=== PATIENT | male | born 1940 | race Caucasian/White ===

== ENCOUNTER 2023-11-19 20:03 | Inpatient (IN) | payer OTHER, MEDICARE ==
[~2023-11-19] VITALS: Ht 170.2 cm; Wt 75.3 kg
[2023-11-19] MEDS: atorvastatin 20mg tablet PO SCH (01:30)
[2023-11-19] MEDS ORDERED: mag hydrox/Alum hydrox/simeth 30ml oral suspension PO PRN (21:25)
[2023-11-19] MEDS ORDERED: ondansetron/PF 4mg/2ml inj IV PRN (21:25)
[2023-11-19] MEDS ORDERED: potassium Cl 20 mEq SR tablet PO PRN ×2 (21:25)
[2023-11-19] MEDS ORDERED: magnesium 2GM in 50ml NS 50 ML IV PRN (21:25)
[2023-11-19] MEDS ORDERED: magnesium hydroxide 30ml (MOM) UD suspension PO PRN (21:25)
[2023-11-19] MEDS ORDERED: potassium Cl 40MEQ/1/2NS 520ml 520 ML IV PRN (21:25)
[2023-11-19] MEDS ORDERED: magnesium 4gm in 100ml NS 100 ML IV PRN (21:25)
[2023-11-19] MEDS ORDERED: magnesium Cl slow-release 64mg tablet PO PRN (21:25)
[2023-11-19] MEDS ORDERED: heparin 10,000 units/1 ML INJ IV PRN (21:35)
[2023-11-19] MEDS: heparin 10,000 units/1 ML INJ IV ONE (22:03)
[2023-11-19] MEDS: heparin 25,000 UNIT/250ml bag 250 ML IV PRN (22:06)
[2023-11-19] MEDS: MESSAGE TO NURSING IV ONE (22:06)
[2023-11-19 22:13] LABS: HEMOGLOBIN A1C 6.7 % (4.5-6.2)
[2023-11-19 22:15] LABS: APTT 41 SECONDS (22-32); INR 2.5 INR; PROTHROMBIN TIME 24.1 SECONDS (9.0-12.0)
[2023-11-19 22:30] VITALS: BP 133/79; PULSE 77; RESP 12; TEMP 97.2; O2SAT 96
[2023-11-20] VITALS (9 sets, daily range): BP systolic 116–150; BP diastolic 57–91; PULSE 70–84; RESP 14–78; TEMP 96.6–98.3; O2SAT 86–97
[2023-11-20] MEDS ORDERED: EMPA25TA PO (00:59)
[2023-11-20] MEDS ORDERED: WARF2.5T82 PO (00:59)
[2023-11-20] MEDS ORDERED: METO-384 PO (00:59)
[2023-11-20] MEDS: nitroGLYCERIN 0.4mg SUBLingual tab SL PRN (02:26)
[2023-11-20 04:26] LABS: BASOPHILS % (AUTO) 0.3 % (0-1); EOSINOPHILS # (AUTO) 0.3 X10'3 (0-0.9); EOSINOPHILS % (AUTO) 2.6 % (0-6); HEMATOCRIT 41.1 % (42.0-52.0); HEMOGLOBIN 13.5 g/dl (14.0-17.9); LYMPHOCYTES # (AUTO) 1.6 X10'3 (1.1-4.8); LYMPHOCYTES % (AUTO) 16.2 % (21-51); MEAN CORPUSCULAR HEMOGLOBIN 30.4 PG (27.0-31.0); MEAN CORPUSCULAR VOLUME 92.1 FL (78-98); MEAN PLATELET VOLUME 8.3 FL (7.4-10.4); MONOCYTES # (AUTO) 0.8 X10'3 (0-0.9); MONOCYTES % (AUTO) 8.3 % (2-12); NEUTROPHILS # (AUTO) 7.2 X10'3 (1.8-7.7); NEUTROPHILS % (AUTO) 72.6 % (42-75); PLATELET COUNT 245 X10'3 (140-440); RED BLOOD COUNT 4.46 X10'6 (4.70-6.10); RED CELL DISTRIBUTION WIDTH 14.5 % (11.5-14.5)
[2023-11-20] MEDS: MESSAGE TO NURSING IV ONE ×3 (04:50→12:15)
[2023-11-20 07:38] LABS: ALBUMIN 3.4 G/DL (3.4-5.0); ANION GAP 13 (8-16); BLOOD UREA NITROGEN 17 MG/DL (7-18); BUN/CREATININE RATIO 16.7 (10.0-20.0); CALCIUM 8.7 MG/DL (8.5-10.1); CHLORIDE 106 MMOL/L (99-107); CHOLESTEROL 201 MG/DL (0-200); CREATININE 1.02 MG/DL (0.60-1.10); GLUCOSE 118 MG/DL (70-104); HDL CHOLESTEROL 40 MG/DL (35-60); LDL CHOLESTEROL 136 MG/DL (50-100); POTASSIUM 4.1 MMOL/L (3.5-5.1); SODIUM 142 MMOL/L (135-145); TOTAL CARBON DIOXIDE 23.2 MMOL/L (24-32); TRIGLYCERIDES 135 MG/DL (20-135); eCRCL 53 ML/MIN; eGFR 70 ML/MIN
[2023-11-20] MEDS: aspirin 81mg, enteric-coated 1 TAB TABLET.DR PO SCH (07:38)
[2023-11-20] MEDS: K and/or MAG REPLACEMENT MC SCH (08:00)
[2023-11-20 09:05] LABS: ALANINE AMINOTRANSFERASE 18 U/L (12-78); ALBUMIN 3.6 G/DL (3.4-5.0); ALBUMIN/GLOBULIN RATIO 0.9 (1.1-1.5); ALKALINE PHOSPHATASE 90 IU/L (46-116); ANION GAP 10 (8-16); ASPARTATE AMINO TRANSFERASE 26 U/L (10-37); BILIRUBIN,TOTAL 0.5 MG/DL (0.1-1.0); BLOOD UREA NITROGEN 17 MG/DL (7-18); BUN/CREATININE RATIO 15.6 (10.0-20.0); CHLORIDE 104 MMOL/L (99-107); CREATININE 1.09 MG/DL (0.60-1.10); GLUCOSE 115 MG/DL (70-104); SODIUM 139 MMOL/L (135-145); TOTAL CARBON DIOXIDE 24.6 MMOL/L (24-32); TOTAL PROTEIN 7.4 G/DL (6.4-8.2); eCRCL 50 ML/MIN; eGFR 65 ML/MIN
[2023-11-20] MEDS: acetaminophen 325mg tablet PO PRN (11:58)
[2023-11-20] MEDS ORDERED: heparin 25,000 UNIT/250ml bag 250 ML IV PRN (12:09)
[2023-11-20] MEDS ORDERED: LIDOcaine 1% (10mg/ml) 2ml vial ONE (15:10)
[2023-11-20] MEDS ORDERED: fentaNYL/PF 50MCG/1 ML 2ML syringe ONE (15:11)
[2023-11-20] MEDS ORDERED: midazolam 1 mg/ML 2ml injection ONE (15:11)
[2023-11-20] MEDS ORDERED: LIDOcaine 1% 30ml preserv. free vial ONE (15:12)
[2023-11-20] MEDS ORDERED: iohexol 350 MG/ML 50ML vial IV ONE ×2 (15:13→16:05)
[2023-11-20] MEDS ORDERED: iohexol 350MG/ML 100ml bottle IV ONE ×2 (15:13→16:08)
[2023-11-20] MEDS ORDERED: diphenhydrAMINE 50 mg/ml inj ONE (15:50)
[2023-11-20] MEDS ORDERED: ondansetron/PF 4mg/2ml inj IV PRN (17:30)
[2023-11-20] MEDS ORDERED: nitroGLYCERIN 0.4mg SUBLingual tab SL PRN (17:35)
[2023-11-20] MEDS ORDERED: proCHLORperazine 10 MG/2 ml inj IV PRN (17:35)
[2023-11-20] MEDS ORDERED: OXAZEpam 15mg capsule PO PRN (17:35)
[2023-11-20] MEDS ORDERED: HYDROcodone/acetaminophen 10/325mg tab PO PRN (17:35)
[2023-11-20] MEDS ORDERED: HYDROcodone/acetaminophen 5mg/325mg tablet PO PRN (17:35)
[2023-11-20] MEDS ORDERED: DEXTROSE 15 GM of carb/4 tabs (each vial/BOTTLE has 4 tablets) PO PRN ×2 (20:45)
[2023-11-20] MEDS ORDERED: glucagon, human recombinant 1mg kit SUBCUT PRN (20:45)
[2023-11-20] MEDS ORDERED: dextrose 50%-water 50ml dispensing syringe IV PRN ×2 (20:45)
[2023-11-20] MEDS: INSULIN LISPRO 100 UNIT/ML INSULN.PEN MULTI-DOSE SQ SCH (21:00)
[2023-11-20] MEDS: insulin glargine (Lantus) pen - multi-dose SQ SCH (21:00)
[2023-11-20 22:42] LABS: BILIRUBIN,URINE NEGATIVE (Neg); CLARITY,URINE CLEAR (Clear); COLOR,URINE YELLOW (Yellow); GLUCOSE, URINE 500 mg/dl (Neg); KETONES,URINE 15 mg/dl (Neg); LEUKOCYTE ESTERASE ,URINE NEGATIVE (Neg); NITRITES, URINE NEGATIVE (Neg); OCCULT BLOOD,URINE LARGE (Neg); PROTEIN,URINE TRACE mg/dl (Neg); UROBILINOGEN,URINE 0.2 E.U/dL (0.2-1.0)
[2023-11-20 22:44] LABS: UA COLLECTION TYPE NON-SPECIFIED
[2023-11-20 22:57] LABS: SQUAMOUS EPITHELIAL CELL,UR FEW /LPF (FEW)
[2023-11-20 22:58] LABS: BACTERIA,URINE FEW /HPF (Neg); WBC,URINE 0-4 /HPF (0-4)
[2023-11-20 23:00] LABS: URINE AMPHETAMINE SCREEN NEGATIVE (Neg); URINE BARBITUATE SCREEN NEGATIVE (Neg); URINE BENZODIAZEPINES SCREEN POSITIVE (Neg); URINE CANNABINOID SCREEN NEGATIVE (Neg); URINE COCAINE SCREEN NEGATIVE (Neg); URINE METHADONE SCREEN NEGATIVE (Neg); URINE OPIATE SCREEN POSITIVE (Neg); URINE PHENCYCLIDINE SCREEN NEGATIVE (Neg)
[2023-11-21] VITALS (7 sets, daily range): BP systolic 111–137; BP diastolic 66–75; PULSE 73–94; RESP 16–20; TEMP 97.5–98.5; O2SAT 93–97
[2023-11-21 07:28] LABS: BASOPHILS % (AUTO) 0.3 % (0-1); EOSINOPHILS # (AUTO) 0.3 X10'3 (0-0.9); HEMATOCRIT 40.6 % (42.0-52.0); HEMOGLOBIN 13.2 g/dl (14.0-17.9); LYMPHOCYTES # (AUTO) 1.1 X10'3 (1.1-4.8); LYMPHOCYTES % (AUTO) 13.9 % (21-51); MEAN CORPUSCULAR HGB CONC 32.5 g/dL (33.0-36.5); MEAN CORPUSCULAR VOLUME 92.4 FL (78-98); MEAN PLATELET VOLUME 8.6 FL (7.4-10.4); MONOCYTES # (AUTO) 0.7 X10'3 (0-0.9); MONOCYTES % (AUTO) 8.9 % (2-12); NEUTROPHILS # (AUTO) 5.7 X10'3 (1.8-7.7); NEUTROPHILS % (AUTO) 72.9 % (42-75); PLATELET COUNT 247 X10'3 (140-440); RED BLOOD COUNT 4.39 X10'6 (4.70-6.10); RED CELL DISTRIBUTION WIDTH 14.2 % (11.5-14.5); WHITE BLOOD COUNT 7.8 X10'3 (4.5-11.0)
[2023-11-21 07:46] LABS: APTT 41 SECONDS (22-32); INR 2.4 INR; PROTHROMBIN TIME 24.3 SECONDS (9.0-12.0)
[2023-11-21] MEDS: metoprolol succinate 25mg (24-HOUR) SR. Tablet PO SCH (08:14)
[2023-11-21 08:21] LABS: ALANINE AMINOTRANSFERASE 16 U/L (12-78); ALBUMIN 3.2 G/DL (3.4-5.0); ALBUMIN/GLOBULIN RATIO 0.9 (1.1-1.5); ALKALINE PHOSPHATASE 79 IU/L (46-116); ANION GAP 12 (8-16); ASPARTATE AMINO TRANSFERASE 19 U/L (10-37); BILIRUBIN,TOTAL 0.6 MG/DL (0.1-1.0); BLOOD UREA NITROGEN 15 MG/DL (7-18); CALCIUM 8.8 MG/DL (8.5-10.1); CHLORIDE 106 MMOL/L (99-107); CREATININE 0.94 MG/DL (0.60-1.10); GLUCOSE 90 MG/DL (70-104); POTASSIUM 4.1 MMOL/L (3.5-5.1); SODIUM 140 MMOL/L (135-145); TOTAL CARBON DIOXIDE 22.5 MMOL/L (24-32); TOTAL PROTEIN 6.6 G/DL (6.4-8.2); eCRCL 58 ML/MIN; eGFR 77 ML/MIN
[2023-11-21] MEDS: furosemide 20 MG/2 ML vial IV SCH (13:59)
[2023-11-21] MEDS: warfarin 2.5mg tablet PO ONE (21:45)
[2023-11-22 02:00] VITALS: BP 119/72; PULSE 68; RESP 15; TEMP 98.4; O2SAT 95
[2023-11-22 06:00] VITALS: BP 130/64; PULSE 68; RESP 16; TEMP 97.4; O2SAT 94
[2023-11-22 07:55] LABS: BASOPHILS % (AUTO) 0.4 % (0-1); EOSINOPHILS # (AUTO) 0.4 X10'3 (0-0.9); EOSINOPHILS % (AUTO) 4.1 % (0-6); HEMATOCRIT 39.7 % (42.0-52.0); HEMOGLOBIN 13.6 g/dl (14.0-17.9); LYMPHOCYTES # (AUTO) 1.6 X10'3 (1.1-4.8); MEAN CORPUSCULAR HEMOGLOBIN 31.6 PG (27.0-31.0); MEAN CORPUSCULAR HGB CONC 34.2 g/dL (33.0-36.5); MEAN CORPUSCULAR VOLUME 92.4 FL (78-98); MEAN PLATELET VOLUME 8.7 FL (7.4-10.4); MONOCYTES # (AUTO) 0.9 X10'3 (0-0.9); MONOCYTES % (AUTO) 9.3 % (2-12); NEUTROPHILS # (AUTO) 6.6 X10'3 (1.8-7.7); NEUTROPHILS % (AUTO) 69.2 % (42-75); PLATELET COUNT 263 X10'3 (140-440); RED BLOOD COUNT 4.29 X10'6 (4.70-6.10); RED CELL DISTRIBUTION WIDTH 13.7 % (11.5-14.5); WHITE BLOOD COUNT 9.5 X10'3 (4.5-11.0)
[2023-11-22 07:58] LABS: APTT 42 SECONDS (22-32); INR 2.2 INR; PROTHROMBIN TIME 22.1 SECONDS (9.0-12.0)
[2023-11-22 08:00] VITALS: RESP 16; O2SAT 94
[2023-11-22 08:26] LABS: ALANINE AMINOTRANSFERASE 17 U/L (12-78); ALBUMIN 3.3 G/DL (3.4-5.0); ALBUMIN/GLOBULIN RATIO 0.9 (1.1-1.5); ALKALINE PHOSPHATASE 76 IU/L (46-116); ANION GAP 9 (8-16); ASPARTATE AMINO TRANSFERASE 17 U/L (10-37); BILIRUBIN,TOTAL 0.7 MG/DL (0.1-1.0); BLOOD UREA NITROGEN 23 MG/DL (7-18); BUN/CREATININE RATIO 21.1 (10.0-20.0); CALCIUM 8.9 MG/DL (8.5-10.1); CHLORIDE 104 MMOL/L (99-107); CREATININE 1.09 MG/DL (0.60-1.10); GLUCOSE 92 MG/DL (70-104); POTASSIUM 3.7 MMOL/L (3.5-5.1); SODIUM 139 MMOL/L (135-145); TOTAL CARBON DIOXIDE 25.7 MMOL/L (24-32); TOTAL PROTEIN 6.9 G/DL (6.4-8.2); eCRCL 50 ML/MIN; eGFR 65 ML/MIN
[2023-11-22 11:00] VITALS: BP 146/78; PULSE 77; RESP 13; TEMP 97.7; O2SAT 97
[2023-11-22] MEDS ORDERED: FURO-150 PO (11:47)
[2023-11-22] MEDS ORDERED: ATOR20TA66 PO (11:47)
[2023-11-22] MEDS ORDERED: ASPI-1071 PO (11:47)
== END 2023-11-22 13:16 | disposition home health service (06) | DRG 280 ==
LOC: ER 20:04 → UNDOADMIN 21:24 → ED HOLD 21:24 → PCU 3S 23:30
PROVIDERS: ADMIT Surgery; ATTEND Family Medicine
PROC: 4A023N7 Measurement of Cardiac Sampling and Pressure, Left Heart, Percutaneous Approach (ICD-10-PCS; principal; 2023-11-20)
PROC: B2181ZZ Fluoroscopy of Left Internal Mammary Bypass Graft using Low Osmolar Contrast (ICD-10-PCS; 2023-11-20)
PROC: B2131ZZ Fluoroscopy of Multiple Coronary Artery Bypass Grafts using Low Osmolar Contrast (ICD-10-PCS; 2023-11-20)
PROC: B2111ZZ Fluoroscopy of Multiple Coronary Arteries using Low Osmolar Contrast (ICD-10-PCS; 2023-11-20)
PROC: B2151ZZ Fluoroscopy of Left Heart using Low Osmolar Contrast (ICD-10-PCS; 2023-11-20)
DX: I21.4 Non-ST elevation (NSTEMI) myocardial infarction (principal); I50.21 Acute systolic (congestive) heart failure; J96.01 Acute respiratory failure with hypoxia; K57.92 Diverticulitis of intestine, part unspecified, without perforation or abscess without bleeding; I25.10 Atherosclerotic heart disease of native coronary artery without angina pectoris; I25.2 Old myocardial infarction; Z87.891 Personal history of nicotine dependence; Z95.0 Presence of cardiac pacemaker; Z90.49 Acquired absence of other specified parts of digestive tract; Z95.1 Presence of aortocoronary bypass graft; E78.5 Hyperlipidemia, unspecified; I48.91 Unspecified atrial fibrillation; I34.0 Nonrheumatic mitral (valve) insufficiency; E11.9 Type 2 diabetes mellitus without complications; Z79.4 Long term (current) use of insulin
CPT/HCPCS: 36415; 71045; 75630; 80048; 80053; 80061; 80305; 81001; 82948; 83036; 83880; 84484; 85025; 85610; 85730; 87081; 93005; 93306; 93458; 97116; 97161; 97530; 97535; 99152; 99153; 99285; A4615; A6213; A6250; A6258; C1751; C1760; G0378; J1200; J1644; J1815; J1940; J2250; J3010; J3490; J7030; Q9967